=== PATIENT | male | born 1970 | race Caucasian/White ===

== ENCOUNTER 2021-12-07 15:03 | Emergency (ER) | payer SELFPAY ==
[~2021-12-07 15:03] MED LIST: PRINIVIL20 MG PO
[2021-12-07 16:02] LABS: HEMOGLOBIN 14.4 gm/dl (14.0-17.5); RED BLOOD COUNT 4.95 M/UL (4.20-5.50); WHITE BLOOD COUNT 8.7 K/UL (4.5-11.0)
== END 2021-12-07 17:30 ==
LOC: ER1 15:03
PROVIDERS: Family Medicine
DX: I60.9 Nontraumatic subarachnoid hemorrhage, unspecified (principal); I16.1 Hypertensive emergency; I10 Essential (primary) hypertension; N28.9 Disorder of kidney and ureter, unspecified; Z20.822 Contact with and (suspected) exposure to COVID-19
CPT/HCPCS: 31500; 36600; 51702; 70450; 71045; 80053; 80307; 81001; 82550; 82553; 82803; 84484; 85025; 85610; 93005; 94002; 96374; 96375; 99285; J2060; J2250; U0002